=== PATIENT | female | born 2000 | race Caucasian/White ===

== ENCOUNTER 2022-06-24 11:28 | Outpatient (REF) | payer MEDICAID, SELFPAY ==
--- NOTE | 2022-06-24 12:44 | MHC.AU.HFU ---
Hearing Instrument Follow-Up- Binaural Date of Visit: 06/24/22 Right Ear: Jean Paul Haywoodo [id number] SN: [id number] Color: [place] Repair Warranty: 06/14/2021 Battery Size: 13 Iron Handler: 0xS Type of Mold: Small open dome Type of Wax Guard: CeruStop Dispensed By: [facility] Date of Fittin03/24/2018 Left Ear: Jean Paul Haywoodo [id number] SN: [id number] Color: [place] Repair Warranty: 06/14/2021 Battery Size: 13 Iron Handler: 0xS Type of Mold: Small open dome Type of Wax Guard: CeruStop Dispensed By: [facility] Date of Fittin03/24/2018 Follow-Up Summary: Shelley returned for routine hearing aid maintenance. She was last seen in March 2018. Since then, she reported that she has not been wearing her hearing aids consistently. 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 The noise of the juarez machines often interfered with her ability to hear the customer. 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 Cleaned hearing aids, vacuumed microphones, and replaced domes, wax guards, and retention tails. A listening check demonstrated that the hearing aids are in good working order. Data logging less than 1 hour/day. Adjusted NoiseBlock settings in Speech in Noise and Comfort in Noise programs. Discussed importance of consistent auditory input in reacclimating to the hearing aids. Recommendations: Resume consistent use of binaural amplification. Shelley is due for an updated audiological evaluation and is eligible for new hearing aids in March 2023. Shelley will obtain a PCP order for the hearing test next summer to begin the process for new hearing aids. If a change in hearing is suspected, an updated evaluation should be scheduled sooner. Diagnosis Code(s): Primary Diagnosis: H90.3 Bilateral Sensorineural Hearing Loss Signature: Provider: Leland Harris, [facility]
== END 2022-06-24 11:29 | disposition home or self-care (01) ==
LOC: HO.HAP 11:28
PROVIDERS: Visit Provider Nurse Practitioner Pediatrics
DX: Z46.1 Encounter for fitting and adjustment of hearing aid (principal); H90.3 Sensorineural hearing loss, bilateral
CPT/HCPCS: 92593

== ENCOUNTER 2023-09-15 15:42 | Outpatient (REF) | payer OTHER, SELFPAY ==
--- NOTE | 2023-09-15 16:50 | MHC.AU.HA1 ---
Hearing Aid Evaluation Date of Visit: 09/15/23 Historical Information: Description of Hearing: Within normal gradually sloping to severe sensorineural hearing loss, bilateral, asymmetric -worse right. Current personal amplification information, if applicable: Phonak B50 - Direct. Summary: Seen for evaluation. Reports her current aids have not been working well for her recently. Notes difficulty differentiating consonants when taking e-mail addresses of customers at work. Hearing thresholds are stable. Her current aids are over five years old. Trial with new technology recommended. She would like to stick with disposable batteries. Hearing Aid Prescription: Based on the individual?s shared listening needs, communication environments, dexterity, desire for connectivity, and personal preferences, the following prescription for amplification has been made: Right ear: Make, Model, Color: Phonak Audeo P70 13 T Color: [place] Battery Size: 13 Microbiology Lab Technician/Slim Tube: 0M Type of Earmold/Dome/CShell/SlimTip: Small open dome Left ear: Left ear prescription to be same as Right Hearing Aid above: Make, Model, Color: Phonak Audeo P70 13 T Color: [place] Battery Size: 13 Microbiology Lab Technician/Slim Tube: 0M Type of Earmold/Dome/CShell/SlimTip: Small closed dome Plan of Care: Patient wishes to purchase hearing aids as prescribed Action Taken/Action Needed: Medical Clearance to be requested from PCP/ENT Hearing Instrument Fitting to be scheduled when materials arrive Primary Diagnosis: H90.3 Bilateral Sensorineural Hearing Loss Signature: Provider: Leland hSah, CCC-A
== END 2023-09-15 15:43 | disposition home or self-care (01) ==
LOC: HO.SH 15:42
PROVIDERS: Visit Provider Nurse Practitioner Adult Health
DX: Z01.118 Encounter for examination of ears and hearing with other abnormal findings (principal); Z46.1 Encounter for fitting and adjustment of hearing aid; H90.3 Sensorineural hearing loss, bilateral
CPT/HCPCS: 92557; 92591; 92593

== ENCOUNTER 2023-10-16 10:01 | Outpatient (REF) | payer OTHER, SELFPAY ==
--- NOTE | 2023-10-16 10:41 | MHC.AU.HA3 ---
Hearing Instrument Fitting Date of Visit: 10/16/23 Right Ear: Make, Model, Color, Serial Number: Phonak Loiseo P70 13 T Color: [place] Deputy Jailer Repair Warranty: Deputy Jailer Loss and Damage Warranty: [facility] Service Plan: Battery Size: 13 Body Shop Estimator/Slim Tube: 0M Earmold/Dome/CShell/SlimTip:Small open dome Type of Wax Guard: CeruStop Dispensed By: [facility] Date of Fitting: Left Ear: Make, Model, Color, Serial Number: Phonak Audeo P70 13 T Color: [place] Deputy Jailer Repair Warranty: Deputy Jailer Loss and Damage Warranty: [facility] Service Plan: Battery Size: 13 Body Shop Estimator/Slim Tube: 0M Earmold/Dome/CShell/SlimTip: Small closed dome Type of Wax Guard: CeruStop Dispensed By: [facility] Date of Fitting: Follow-Up Summary: While setting up for Shelley's fitting today I realized we had received rechargeable hearing aids instead of the desired 13T. When Shelley arrived I offered to fit her with these and then swap them out for 13s at her next visit or just return these and call her to schedule new fitting when the correct aids arrived. Shelley reported that her current aids are working fine at the moment and she would prefer to continue using them and return when the right aids are here. Returning Rs to Phonak and ordering 13s today. Recommendations: Recommendations: Patient will be contacted when materials have arrived. Diagnosis Code(s): Primary Diagnosis: H90.3 Bilateral Sensorineural Hearing Loss Signature: Provider: Leland Shah, [facility]
== END 2023-10-16 10:02 | disposition home or self-care (01) ==
LOC: HO.HAP 10:01
PROVIDERS: PCP Nurse Practitioner Adult Health; Visit Provider Internal Medicine
DX: Z13.89 Encounter for screening for other disorder (principal)

== ENCOUNTER 2023-10-23 09:54 | Outpatient (REF) | payer OTHER, SELFPAY ==
--- NOTE | 2023-10-23 11:07 | MHC.AU.HA2 ---
Hearing Instrument Fitting- Adult- Binaural Date of Visit: 10/23/23 Hearing Instruments Dispensed: Right Ear: Make, Model, Color, Serial Number: Phonak Audeo P70 13 T Color: [place] [id number] Loan Approver Repair Warranty: 11/13/2026 Loan Approver Loss and Damage Warranty: 11/13/2026 [facility] Service Plan: 10/22/2024 Battery Size: 13 Gauge Controller/Slim Tube: 0M Earmold/Dome/CShell/SlimTip: Small vented dome Type of Wax Guard: CeruStop Left Ear: Make, Model, Color, Serial Number: Phonak Audeo P70 13 T Color: [place] [id number] Loan Approver Repair Warranty: 11/13/2026 Loan Approver Loss and Damage Warranty: 11/13/2026 [facility] Service Plan: 10/22/2024 Battery Size: 13 Gauge Controller/Slim Tube: 0M Earmold/Dome/CShell/SlimTip: Small vented dome Type of Wax Guard: CeruStop Summary of Fitting: Fit with and oriented to binaural Phonak Audeo P70 13 HAs. Verified to DSL5 Adult targets. Good subjective comfort and benefit reported. Longtime hearing aid user. Reviewed changing domes and wax guards, batteries, precautions. VC enabled, reviewed use. Paired with iPhone and connected to [employer]. Shelley inquired about connectivity options at work. She reports that she needs to use a walkie talkie that is connected to an earpiece at work that she cannot comfortably use with her hearing aids. I looked into options after the appointment and the [employer] Clip on Sage appears to be the most appropriate option that could connect to the walkie talkie through an aux output and stream to the hearing aids. To be discussed further at her follow up appointment. Recommendations: Recommendations: Hearing instrument care and maintenance were discussed and practiced. The instrument(s) were paired to the patient's smartphone. Use of the smartphone lopez was demonstrated. A hearing instrument follow-up was scheduled. Please call our clinic with any questions or concerns. Diagnosis Code(s): Primary Diagnosis: H90.3 Bilateral Sensorineural Hearing Loss Signature: Provider: Leland Shah, [facility]
== END 2023-10-23 09:55 | disposition home or self-care (01) ==
LOC: HO.HAP 09:54
PROVIDERS: Visit Provider Nurse Practitioner Adult Health
DX: Z46.1 Encounter for fitting and adjustment of hearing aid (principal); H90.3 Sensorineural hearing loss, bilateral
CPT/HCPCS: V5011; V5020; V5160; V5261; V5266